=== PATIENT | male | born 1955 | race Caucasian/White ===

== ENCOUNTER 2018-02-14 11:07 | Emergency (ER) | payer OTHER ==
[~2018-02-14] VITALS: Ht 177.8 cm; Wt 88.5 kg
[2018-02-14] MEDS ORDERED: Percocet 5-3251 EACH PO (11:49)
[2018-02-14] MEDS ORDERED: CEPH500 PO (11:49)
== END 2018-02-14 12:14 | disposition home or self-care (01) ==
LOC: ER 11:07
DX: S68.022A Partial traumatic metacarpophalangeal amputation of left thumb, initial encounter (principal); W26.8XXA Contact with other sharp object(s), not elsewhere classified, initial encounter
CPT/HCPCS: 64450; 73140; 96374; 96375; 99283; J0690; J2405; J3010

== ENCOUNTER → 2021-07-20 | Outpatient (CLI) | payer MEDICARE ==
[~2021-07-20] MED LIST: CEPH500 PO; Percocet 5-3251 EACH PO
[2021-07-20 16:06] LABS: Protein, Urine Quantitative <5.0 mg/dL (0.0-11.9)
== END | disposition home or self-care (01) ==
LOC: LAB SHORT 14:27 → LAB 14:27
PROVIDERS: Internal Medicine
DX: R31.29 Other microscopic hematuria (principal)
CPT/HCPCS: 81050; 84156